=== PATIENT | female | born 1980 | race African-American/Black ===

== ENCOUNTER 2021-04-04 14:02 | Emergency (ER) | payer OTHER ==
[2021-04-04 14:26] VITALS: BP 104/59; PULSE 86; TEMP 98.5; BMI 35.4
[2021-04-04] MEDS ORDERED: KETOROLAC TROMETHAMINE 30 MG/1 ML VIAL IM ONE (16:00)
[2021-04-04] MEDS ORDERED: LIDOCAINE 5% TOPICAL PATCH TP ONE (16:01)
[2021-04-04] MEDS ORDERED: diazePAM 5 MG TABLET PO ONE (16:01)
[2021-04-04] MEDS ORDERED: IBUPROFEN 600 MG TABLET (FP) PO ONE ×2 (16:07)
[2021-04-04] MEDS ORDERED: LIDOCAINE 5% TOPICAL PATCH ONE (16:07)
[2021-04-04] MEDS ORDERED: diazePAM 5 MG TABLET ONE (16:08)
[2021-04-04] MEDS ORDERED: LIDOCAINE PATCH REMOVAL MC SCH (22:00)
== END 2021-04-04 18:50 | disposition home or self-care (01) ==
LOC: JERFT 14:02
DX: M54.31 Sciatica, right side (principal)
CPT/HCPCS: 99283-25